=== PATIENT | male | born 1950 | race Caucasian/White ===

== ENCOUNTER → 2016-11-20 | Outpatient (CLI) | payer MEDICARE, BC ==
[~2016-11-20] MED LIST: FAMVIR500 MG PO; HYDROCODONE-APA1 TA1 PO
--- NOTE | 2016-11-21 13:28 | RADIOLOGY REPORT PS360 ---
CT SINUS (MAX-FACIAL W/O CONT) CLINICAL INDICATION: OBSTRUCTIVE SLEEP APNEA, DNS, CONGESTION ORDERING PHYSICIAN: Yudith Martinez MD PATIENT AGE: 66 years COMPARISON: None TECHNIQUE:Axial, sagittal, and coronal images are generated and reviewed without contrast COMPARISON: None FINDINGS: Bones: Unremarkable. No fracture, lytic, or blastic changes evident Extracranial soft tissues: Unremarkable Sinuses: There is mild mucosal thickening of the ethmoid sinuses and the left aspect of the sphenoid sinus anteriorly. No sinus air-fluid levels are evident. The maxillary and frontal sinuses have an unremarkable appearance. The ostomy or complex is are patent. Orbits: Unremarkable Other: There is moderate leftward nasal septal deviation anteriorly with narrowing of the nasal canal anteriorly. This is the membranous septum. There is mild leftward nasal septal deviation of the bony nasal septum. The TMJs have an unremarkable appearance. IMPRESSION: 1. Mild ethmoid and left sphenoid sinus disease. 2. Moderate leftward nasal septal deviation anteriorly
== END ==
LOC: RAD 07:43
DX: J34.2 Deviated nasal septum (principal); R09.81 Nasal congestion; G47.33 Obstructive sleep apnea (adult) (pediatric)